=== PATIENT | female | born 1995 | race African-American/Black ===

== ENCOUNTER 2019-04-25 11:04 | Emergency (ER) | payer SELFPAY ==
[~2019-04-25] VITALS: Ht 170 cm; Wt 86.0 kg
[2019-04-25] MEDS ORDERED: IBUPROFEN 800 MG (MOTRIN) TAB PO ONE (11:30)
[2019-04-25] MEDS ORDERED: ACETAMINOPHEN 325 MG TABLET PO ONE (11:30)
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
[2019-04-25 11:53] VITALS: BP 127/87
== END 2019-04-25 11:52 | disposition home or self-care (01) ==
LOC: ER FS 11:05
DX: R51 Headache (principal); V58.6XXA Passenger in pick-up truck or van injured in noncollision transport accident in traffic accident, initial encounter
CPT/HCPCS: 99283